=== PATIENT | male | born 1985 | race Caucasian/White ===

== ENCOUNTER 2023-10-19 10:29 | Emergency (ER) | payer OTHER, SELFPAY ==
[2023-10-19 10:33] VITALS: BP 134/79; PULSE 76; RESP 18; TEMP 36.6; O2SAT 95; BMI 33.1
[2023-10-19] MEDS: methylPREDNISolone Sod Succ 125 MG/2 ML VIAL 60 MG IM (12:46)
[2023-10-19] MEDS: diphenhydrAMINE HCL 50 MG/ML VIAL IM (12:47)
[2023-10-19] MEDS: Famotidine 20 MG TABLET PO (12:47)
[2023-10-19 12:53] VITALS: BP 132/79; PULSE 67; RESP 16; TEMP 36.2; O2SAT 94
--- NOTE | 2023-10-19 14:40 | ED_ITS ---
HPI - Allergic Reaction General Chief complaint: Allergic Reaction Stated complaint: Difficulty breathing Time Seen by Provider: 10/19/23 12:14 Source: patient, RN notes reviewed and old records reviewed Mode of arrival: ambulatory History of Present Illness ED Provider: Uyen Fung PA-C HPI narrative: 38-year-old male with no significant past medical history presenting to the ED complaining facial swelling and SOB since this morning. Patient states he was seen at [facility] in [place] yesterday after allergic reaction, was given 2 EpiPen's and steroids due to unknown allergen. Reports known allergy to kiwi and penicillin, states symptoms began yesterday after drinking a protein shake. States initially felt better on discharge around 21:00, however woke up this morning with symptoms again. Denies new exposures/medications, throat closing sensation, difficulty swallowing/speaking, rash Related Data Previous Rx's ?Medication ?Instructions ?Recorded cetirizine 10 mg capsule (Zyrtec) 10 mg PO DAILY #14 caps 10/19/23 diphenhydramine HCl 25 mg capsule 25 mg PO TID PRN allergic reaction 10/19/23 (Benadryl) #14 caps epinephrine 0.3 mg/0.3 mL 0.3 mg (0.3 mL) IM Q4H PRN 10/19/23 injection, auto-injector (EpiPen anaphylaxis #2 ea 2-Mil) famotidine 20 mg tablet (Pepcid) 20 mg PO DAILY PRN allergic 10/19/23 symptoms #7 tabs prednisone 20 mg tablet 40 mg (2 x 20 mg) PO DAILY 4 days 10/19/23 #8 tabs Allergies Allergy/AdvReac Type Severity Reaction Status Date / Time Penicillins [PCN] Allergy Mild RASH Unverified 01/24/20 15:52 kiwi Allergy Shortness Verified 10/19/23 10:36 of Breath Review of Systems Review of Systems: Constitutional: No Fever, No Chills ENT/Mouth: +facial swelling, No Ear Pain, No Hoarseness, No sore throat, No Rhinorrhea, No Swallowing Difficulty Cardiovascular: No Chest Pain, + SOB Respiratory: No Cough, No Sputum, No Wheezing Gastrointestinal: No Nausea, No Vomiting, No Diarrhea, No Constipation, No Abdominal pain Musculoskeletal: No joint pain, No Myalgias, No Joint Swelling Skin: No Skin Lesions, No rash Neuro: No Weakness Yes all other systems are reviewed and are negative Constitutional: Constitutional: Reports as per [facility] Past Medical History Attestation statement: The following information was validated with the patient. Source: old records reviewed Social History Social History Advance Directives: No Advance Directives Information Provided: Yes Physical Exam ED Vital Signs: Vital Signs - 24 hr 10/19/23 10:33 10/19/23 12:53 Temperature 97.8 F 97.1 F Pulse Rate 76 67 Respiratory Rate 18 16 Blood Pressure 134/79 132/79 Pulse Oximetry 95 94 Oxygen Delivery Method Room Air Room Air BMI result Body Mass Index 33.1 Const General: cooperative, healthy appearing and no acute distress Orientation/consciousness: patient oriented x3 Limitations: no limitations HENMT Other: Mild right-sided facial swelling/puffiness appreciated with bilateral upper eyelid puffiness > right Head: Yes normal to inspection and Yes atraumatic Ears: hearing grossly normal bilaterally and external ears normal General nose exam: Normal external nose present Mouth: Normal oral and palatal mucosa present, no audible dysphonia and no drooling Throat: Yes posterior oropharynx normal, Yes uvula midline, No peritonsillar mass, No uvula laterally displaced and No uvular edema Eyes General: appearance normal, both eyes and all related structures EOM: EOMs intact bilaterally Neck Neck: Yes normal visual inspection and Yes no meningeal signs Resp Effort & Inspection: normal respiratory effort, no grunting, not labored, no respiratory distress, no stridor and not tachypneic Auscultation: clear to auscultation bilaterally, no crackles and no wheezes Cardio Rate: regular rate Heart sounds: S1 normal heart sound present and S2 normal heart sound present GI Inspection: Yes normal to inspection Palpation (GI): Soft to palpation, nontender, no guarding and not rigid Skin Rashes: no rashes Wounds: no wounds Neuro General: patient oriented x3, tone normal and no meningeal signs Cranial nerves: Yes CN's II-XII intact bilaterally Gait exam (Neuro): Normal gait present Extrem General: Yes normal to inspection Course Course Course Narrative: -records requested from [facility] in [place] however never received. -[id number]--patient has been observed in the ED for 4-1/2 hours without evidence of anaphylaxis. Facial swelling has improved. Remains talking in complete sentenc es without any respiratory distress. Will discharge home with additional medications including prednisone, EpiPen, and recommended sound art instructor follow-up Medications Administered Discontinued Medications Generic Name Dose Route Start Last Admin Trade Name Mirtha PRN Reason Stop Dose Admin Diphenhydramine HCl 50 mg 10/19/23 12:33 10/19/23 12:47 Diphenhydramine Hcl 50 Mg/Ml Vial IM 10/19/23 12:34 50 mg ONCE ONE Administration Famotidine 20 mg 10/19/23 12:34 10/19/23 12:47 Famotidine 20 Mg Tablet PO 10/19/23 12:35 20 mg ONCE ONE Administration Methylprednisolone Sodium Succinate 60 mg 10/19/23 12:33 10/19/23 12:46 Methylprednisolone Sod Succ 125 Mg/2 Ml Vial IM 10/19/23 12:34 60 mg ONCE ONE Administration Medical Decision Making Medical Decision Making MDM Narrative: 38-year-old male with no significant past medical history presenting to the ED complaining facial swelling and SOB since this morning. On exam vital signs stable, NAD, nontoxic appearing, physical exam as noted above without evidence of anaphylaxis. Talking in complete sentences. Uvula midline, handling secretions. Concern for allergic reaction. Low suspicion for cellulitis or other infectious etiology/insect bite Plan: IM Benadryl, IM Solu-Medrol, p.o. Pepcid, observe and re-evaluate. Requested records from other hospital Please refer to course for remaining clinical decision making, interpretation of labs/imaging results, and discussions with consultants and/or family members. Differential Diagnosis Differential Diagnoses: The differential diagnosis associated with the presentation includes As above Admission/Observation Consideration of admission/observation: Escalation of care including admission/observation considered External Record Review External record reviewed: Inpatient record, Office record, Outpatient record, Prior outpatient labs, Prior outpatient radiology, Primary care record and Outside ED record Tests considered The following testing was considered but not selected: As above Critical Care Time Critical Care Time Critical Care Time: Yes Total Critical Care Time: 32 Attestation: I have personally provided critical care time exclusive of time spent on separately billable procedures. Time includes review of lab data, radiology results, discussion with consultants, and monitoring for potential decompensation. Intervention performed as documented. Discharge Plan Discharge Clinical Impression: Allergic reaction Patient Disposition: Home, Self-Care Instructions: General Allergic Reaction (ED), Allergy Testing (ED) Additional Instructions: Use EpiPen as needed for anaphylaxis. If you use your EpiPen please go to an emergency department Take Benadryl and Zyrtec as needed for allergy symptoms. Do not drive while taking Benadryl this will make you drowsy Prednisone as a steroid Pepcid as an antihistamine which will also help with allergic symptoms If her symptoms persist or worsen you develop shortness of breath, wheezing, throat closing sensation return to the ED immediately Follow-up with your doctor as well as an sound art instructor Prescriptions: New prednisone 20 mg tablet 40 mg PO DAILY 4 Days Qty: 8 0RF diphenhydramine HCl [Benadryl] 25 mg capsule 25 mg PO TID PRN (Reason: allergic reaction) Qty: 14 0RF Zyrtec 10 mg capsule 10 mg PO DAILY Qty: 14 0RF famotidine [Pepcid] 20 mg tablet 20 mg PO DAILY PRN (Reason: allergic symptoms) Qty: 7 0RF epinephrine [EpiPen 2-Mil] 0.3 mg/0.3 mL auto-injector 0.3 mg IM Q4H PRN (Reason: anaphylaxis) Qty: 2 0RF Referrals: Neri Cordova MD [Physician] - Brayan Murray DO [Physician] - Tal Winter PA-C [Physician Analytics Manager] - Print Language: Norwegian
[2023-10-19 14:59] VITALS: BP 127/78; PULSE 88; RESP 18; TEMP -17.7; TEMP 0; O2SAT 95
== END 2023-10-19 15:01 | disposition home or self-care (01) ==
PROVIDERS: Emergency Provider Emergency Medicine Emergency Medical Services
DX: T78.1XXA Other adverse food reactions, not elsewhere classified, initial encounter (principal); R06.02 Shortness of breath; X58.XXXA Exposure to other specified factors, initial encounter; R22.0 Localized swelling, mass and lump, head
CPT/HCPCS: 96372; 99284; J1200; J2919

== ENCOUNTER 2024-11-18 11:37 | Emergency (ER) | payer OTHER, SELFPAY ==
[2024-11-18 11:59] VITALS: BP 143/95; PULSE 69; RESP 20; TEMP 36.3; O2SAT 95; BMI 32.0
--- NOTE | 2024-11-18 12:03 | ED.GENADULT ---
HPI - General Adult General Chief complaint: Allergic Reaction Stated complaint: Allergic reaction Time Seen by Provider: 11/18/24 14:53 Source: patient and RN notes reviewed Mode of arrival: ambulatory Limitations: no limitations History of Present Illness ED Provider: Charla Cash PA-C HPI narrative: This is a 39-year-old male who presents emergency department with concerns of right-sided facial swelling. Patient states that on Tuesday he was stung by a bee/wasp of multiple times on the right side of his face. Patient states that yesterday he had some facial swelling, and pain around the area however states that this morning his right eye was swollen shut. Denies any recent illness, he has been in his usual state of health. Denies any fevers or chills. He does admit to having some blurred vision of his right eye. He does report pain surrounding the eye. Denies eye pain. He was seen at an urgent care where he was given 125 of Solu-Medrol and Zyrtec. He has been taking Benadryl at home, last dose was at 5:00 a.m. this morning. No other complaints or concerns at this time. MD complaint: Right-sided facial swelling Relieving factors: none Exacerbating factors: none Associated symptoms: denies other symptoms Treatments prior to arrival: other (Solu-Medrol, Claritin) Related Data Previous Rx's ?Medication ?Instructions ?Recorded cetirizine 10 mg capsule (Zyrtec) 10 mg PO DAILY #14 caps 10/19/23 diphenhydramine HCl 25 mg capsule 25 mg PO TID PRN allergic reaction 10/19/23 (Benadryl) #14 caps epinephrine 0.3 mg/0.3 mL 0.3 mg (0.3 mL) IM Q4H PRN 10/19/23 injection, auto-injector (EpiPen anaphylaxis #2 ea 2-Mil) famotidine 20 mg tablet (Pepcid) 20 mg PO DAILY PRN allergic 10/19/23 symptoms #7 tabs prednisone 20 mg tablet 40 mg (2 x 20 mg) PO DAILY 4 days 10/19/23 #8 tabs diphenhydramine HCl 25 mg tablet 25 mg PO TID PRN allergic reaction 11/18/24 (Benadryl Allergy) #14 tabs epinephrine 0.3 mg/0.3 mL 0.3 mg (0.3 mL) IM Q10M PRN 11/18/24 injection, auto-injector (EpiPen) anaphylaxis #1 ea famotidine 20 mg tablet (Pepcid) 20 mg PO DAILY PRN allergic 11/18/24 symptoms #7 tabs prednisone 20 mg tablet 40 mg (2 x 20 mg) PO DAILY 4 days 11/18/24 #8 tabs Allergies Allergy/AdvReac Type Severity Reaction Status Date / Time Penicillins (PCN) Allergy Mild RASH Unverified 01/24/20 15:52 bee pollen (bee stings) Allergy Swelling Verified 11/18/24 12:04 kiwi Allergy Shortness Verified 10/19/23 10:36 of Breath Review of Systems Review of Systems: Yes all other systems are reviewed and are negative Constitutional: Constitutional: Reports as per [facility] Social History Social History Smoked in Last 30 Days: No Use of substances other than those prescribed or required for medical reasons: Yes Substance Use Type: Marijuana Advance Directives: No Advance Directives Information Provided: No Do you have a plan to hurt others: No Plan Physical Exam ED Vital Signs: Vital Signs - 24 hr 11/18/24 11:59 11/18/24 16:10 11/18/24 17:15 Temperature 97.4 F 98.0 F 97.9 F Pulse Rate 69 77 72 Respiratory Rate 20 16 18 Blood Pressure 143/95 H 128/71 122/70 Pulse Oximetry 95 96 96 Oxygen Delivery Method Room Air Room Air Room Air BMI result Body Mass Index 32.0 Const General: cooperative, comfortable and no acute distress Orientation/consciousness: patient oriented x3 Limitations: no limitations [facility] Head: Yes normal to inspection, Yes normocephalic and Yes atraumatic Ears: hearing grossly normal bilaterally General nose exam: Normal external nose present Face and sinus: Yes normal facial exam Mouth: Normal oral and palatal mucosa present, oropharynx normal and moist mucous membranes Throat: Yes posterior oropharynx normal Eyes Other: Right upper and lower eyelid is swollen shut, he has no surrounding erythema or warmth. Mildly tender to palpation, he does have multiple scattered punctate lesions noted just for the right ear as well as 1-2 behind the ear. Extraocular movements are intact. Pupil is reactive. General: appearance normal, both eyes and all related structures Conjunctivae: conjunctivae normal Sclerae: sclerae normal Pupils: Equal, round and reactive pupils present EOM: EOMs intact bilaterally Neck Neck: Yes normal visual inspection, Yes full ROM and Yes no lymphadenopathy Lymphatic: no lymphadenopathy noted Chest Chest palpation & inspection: normal inspection of the chest Resp Effort & Inspection: normal respiratory effort and able to speak in complete sentences Auscultation: clear to auscultation bilaterally, no crackles, no rales, no rhonchi and no wheezes Cardio Rate: regular rate Rhythm: regular rhythm Heart sounds: S1 normal heart sound present and S2 normal heart sound present GI Inspection: Yes normal to inspection Skin General skin exam: no rashes or lesions noted Trauma: no lacerations or abrasions Wounds: no wounds Neuro General: patient oriented x3 and moves all extremities Cranial nerves: Yes Equal, round and reactive pupils present Extrem General: Yes normal to inspection Right upper extremity: normal to inspection Left upper extremity: normal to inspection Right lower extremity: normal to inspection Left lower extremity: normal to inspection Course Course Course Narrative: Medical screening exam performed. Please refer to detailed history, exam, evaluation, and management by primary provider. 39-year-old male sustained yellow jacket sting to the side of his right eye and below his right ear on Tuesday. Continued swelling, erythema and increased pain. Went to urgent Care, sent in for concern of cellulitis. Given Solu-Medrol and cetirizine today at urgent care. Patient has been taking Benadryl and Claritin prior to this. Medications Administered Discontinued Medications Generic Name Dose Route Start Last Admin Trade Name Richardq PRN Reason Stop Dose Admin Diphenhydramine HCl 50 mg 11/18/24 15:04 11/18/24 15:33 Diphenhydramine Hcl 50 Mg/Ml Vial IVPUSH 11/18/24 15:05 50 mg ONCE ONE Administration Famotidine 20 mg 11/18/24 15:04 11/18/24 15:33 Famotidine/Pf 20 Mg/2 Ml Vial IVPUSH 11/18/24 15:05 20 mg ONCE ONE Administration Sodium Chloride 1,000 mls @ 999 mls/hr 11/18/24 15:04 11/18/24 16:34 Ns IV 11/18/24 16:04 Infused .Q1H1M ONE Infusion Ibuprofen 600 mg 11/18/24 12:03 11/18/24 12:09 Ibuprofen 600 Mg Tablet PO 11/18/24 12:04 600 mg ONCE ONE Administration Medical Decision Making Medical Decision Making [facility] Narrative: This is a 39-year-old male who presents emergency department with complaints of right eye swelling. Patient states that he was stung by a bee multiple times on Tuesday (11/16) and he has had increased swelling to his right eye. He denies any shortness for breath or difficulty swallowing. Labs were obtained prior to my evaluation, he has no leukocytosis, stable H&H, chemistry with no significant electrolyte derangement. Drink type is noninjected on the right, right eye is swollen shut, had to manually pry eyelids open to visualize the eye. He has had no fevers or chills. He has no leukocytosis and normal lactic. You already received Solu-Medrol 125 by the urgent, will also medicate with IV Benadryl and Pepcid as well as IV fluids. Patient's overall presentation is likely secondary to allergic in etiology, patient was also evaluated by my supervising physician. Also agrees that this is allergic in etiology, no need to starting antibiotics at this time. Patient discharged on prednisone. Given strict return precautions, he is feeling well, patient stable for discharge. Differential Diagnosis Differential Diagnoses: The differential diagnosis associated with the presentation includes allergic reaction, periorbital cellulitis, contact dermaitits, anaphylaxis Lab Data [facility] Lab Attestation statement: I reviewed the patient's lab results. See above 11/18/24 12:25 11/18/24 12:25 Labs: Lab Results 11/18/24 Range/Units 12:25 WBC 5.1 (4.8-10.8) X10*3/uL RBC 5.46 (4.60-5.80) X10*6/uL Hgb 17.1 (14.0-18.0) g/dl Hct 45.9 (42.0-52.0) % MCV 84.1 (80.0-98.0) fL MCH 31.3 (27.0-33.0) pg MCHC 37.3 H (31.0-36.0) g/dl RDW 12.3 (11.0-16.0) % Plt Count 161 (160-400) X10*3/uL MPV 9.6 (9.4-12.4) fL Immature Gran % (Auto) 0.2 (0.0-0.4) % Neut % (Auto) 67.2 (45-73) % Lymph % (Auto) 19.7 L (20-40) % [place] % (Auto) 3.9 (2-11) % Eos % (Auto) 8.4 H (0-4) % Baso % (Auto) 0.6 (0-2) % Lymph # (Auto) 1.0 L (1.2-4.9) X10*3/uL [place] # (Auto) 0.2 (0.1-1.2) X10*3/uL Eos # (Auto) 0.4 (0.0-0.4) X10*3/uL Baso # (Auto) 0.0 (0.0-0.2) X10*3/uL Abs Immat Gran (auto) 0.01 (0.00-0.03) X10*3/uL Absolute Neuts (auto) 3.4 (2.0-8.3) x10*3/uL Absolute Nucleated RBC 0.000 (0.0-0.012) X10*3/uL Nucleated RBC % (auto) 0.0 (0.0-0.2) /100WBC Sodium 141 (135-145) mmol/L Potassium 4.1 (3.3-5.1) mmol/L Chloride 111 H (96-108) mmol/L Carbon Dioxide 22 (22-29) mmol/L Anion Gap 12 (12-20) BUN 8 L (9-16) mg/dL Creatinine 0.87 (0.5-1.4) mg/dL Estim Creat Clear Calc 135.8 Estimated GFR > 60 Random Glucose 91 (60-115) mg/dL Lactic Acid 1.0 (0.5-2.0) mmol/L Calcium 9.3 (8.4-10.2) mg/dL Discharge Plan Discharge Clinical Impression: Allergic reaction Patient Disposition: Home, Self-Care Instructions: General Allergic Reaction (ED) Additional Instructions: You were seen in the emergency department due to an allergic reaction. You have no concerns for any underlying skin infection. We treated you with IV Benadryl, Pepcid, you also received solumedrol (which is a type of steroid). Please continue taking prednisone, start this tomorrow (11/19) Continue taking Benadryl as needed. You should follow-up with an printing supervisor. I am also sending you home with an EpiPen. If any new or worsening symptoms occur including but not limited to severe shortness of breath, chest pain, worsening swelling, please seek emergent care. Use EpiPen as needed for anaphylaxis. If you use your EpiPen please go to an emergency department Pepcid as an antihistamine which will also help with allergic symptoms Prescriptions: New prednisone 20 mg tablet 40 mg PO DAILY 4 Days Qty: 8 0RF Rx Instructions: Start tomorrow (11/19/2024) famotidine [Pepcid] 20 mg tablet 20 mg PO DAILY PRN (Reason: allergic symptoms) Qty: 7 0RF diphenhydramine HCl [Benadryl Allergy] 25 mg tablet 25 mg PO TID PRN (Reason: allergic reaction) Qty: 14 0RF epinephrine [EpiPen] 0.3 mg/0.3 mL auto-injector 0.3 mg IM Q10M PRN (Reason: anaphylaxis) Qty: 1 2RF Rx Instructions: for 2 doses No Action prednisone 20 mg tablet 40 mg PO DAILY 4 Days Qty: 8 0RF diphenhydramine HCl [Benadryl] 25 mg capsule 25 mg PO TID PRN (Reason: allergic reaction) Qty: 14 0RF Zyrtec 10 mg capsule 10 mg PO DAILY Qty: 14 0RF famotidine [Pepcid] 20 mg tablet 20 mg PO DAILY PRN (Reason: allergic symptoms) Qty: 7 0RF epinephrine [EpiPen 2-Mil] 0.3 mg/0.3 mL auto-injector 0.3 mg IM Q4H PRN (Reason: anaphylaxis) Qty: 2 0RF Interventions: ED Discharge Assessment Last Done: 11/18/24 17:15 Discharge Date/Time: 11/18/24 17:16 Print Language: [place]guill[place]
[2024-11-18 12:32] LABS: MANUAL DIFF FLAG NO
[2024-11-18 12:35] LABS: Hematocrit 45.9 % (42.0-52.0); Hemoglobin 17.1 g/dl (14.0-18.0); Imm Gran Abs Auto 0.01 X10*3/uL (0.00-0.03); Imm Gran Pct Auto 0.2 % (0.0-0.4); Lymphocytes Absolute Auto 1.0 X10*3/uL (1.2-4.9); Mean Corpuscular HGB Conc 37.3 g/dl (31.0-36.0); Mean Corpuscular Hemoglobin 31.3 pg (27.0-33.0); Mean Corpuscular Volume 84.1 fL (80.0-98.0); NRBC Abs Auto 0.000 X10*3/uL (0.0-0.012); NRBC Pct Auto 0.0 /100WBC (0.0-0.2); Platelet Count 161 X10*3/uL (160-400); Red Blood Count 5.46 X10*6/uL (4.60-5.80); White Blood Count 5.1 X10*3/uL (4.8-10.8)
[2024-11-18 12:44] LABS: Anion Gap 12 (12-20); Blood Urea Nitrogen 8 mg/dL (9-16); Calcium 9.3 mg/dL (8.4-10.2); Carbon Dioxide 22 mmol/L (22-29); Chloride 111 mmol/L (96-108); Creatinine Clr Calc Pharmacy 135.8; Estimated Glomerular Filt Rate > 60; Potassium 4.1 mmol/L (3.3-5.1); Sodium 141 mmol/L (135-145)
--- NOTE | 2024-11-18 15:58 | PC.NURSE ---
patient a&ox3, iv inserted, labs previously drawn, ivf hung per order, pt medicated per order, pt denies difficulty breathing/swallowing. plan of care ongoing
[2024-11-18 16:10] VITALS: BP 128/71; PULSE 77; RESP 16; TEMP 36.7; O2SAT 96
[2024-11-18 17:15] VITALS: BP 122/70; PULSE 72; RESP 18; TEMP 36.6; O2SAT 96
== END 2024-11-18 17:16 | disposition home or self-care (01) ==
PROVIDERS: Physician Assistant; Emergency Provider Emergency Medicine
DX: R22.0 Localized swelling, mass and lump, head (principal); H53.8 Other visual disturbances; H93.91 Unspecified disorder of right ear; T63.441A Toxic effect of venom of bees, accidental (unintentional), initial encounter; Z79.899 Other long term (current) drug therapy
CPT/HCPCS: 36415; 80048; 83605; 85025; 87040; 96361; 96374; 96375; 99284; 99285; J1200; J1308